=== PATIENT | male | born 1990 | race Caucasian/White ===

== ENCOUNTER 2020-04-14 14:11 | Day surgery (SDC) | payer OTHER ==
[2020-04-13 14:02] VITALS: BMI 27.8
[2020-04-14] MEDS ORDERED: PROPOFOL 20 ML ONE (15:40)
[2020-04-14] MEDS ORDERED: MIDAZOLAM HCL 2 MG/2 ML SINGLE DOSE VIAL ONE (15:40)
[2020-04-14] MEDS ORDERED: BUPIVACAINE HCL/PF 0.25% (2.5MG/ML) 10 ML VIAL ONE (15:54)
[2020-04-14] MEDS ORDERED: BUPIVACAINE HCL/PF 0.25% (2.5MG/ML) 10 ML VIAL IJ ONE (16:39)
[2020-04-14] MEDS ORDERED: PROMETHAZINE HCL 25 MG/1 ML VIAL IVPUSH PRN (17:14)
[2020-04-14] MEDS ORDERED: oxyCODONE HCL 5 MG TABLET PO PRN ×2 (17:14)
[2020-04-14] MEDS ORDERED: ONDANSETRON 4 MG/2 ML VIAL IVPUSH PRN (17:14)
[2020-04-14 18:18] VITALS: TEMP 97.8
--- NOTE | 2020-04-14 18:32 | OP ---
DATE OF OPERATION: 04/14/2020 PREOPERATIVE DIAGNOSIS: Right index finger proximal phalanx intraarticular displaced fracture. POSTOPERATIVE DIAGNOSIS: Right index finger proximal phalanx intraarticular displaced fracture. OPERATIVE PROCEDURE: Operative treatment of right index finger proximal phalanx intraarticular fracture. SURGEON: Maryjane Reece MD OCEAN EXPORT ACCOUNT MANAGER: STEVENSON Machado ANESTHESIA: General. COMPLICATIONS: None. ESTIMATED BLOOD LOSS: Minimal. INDICATION FOR PROCEDURE: A 29-year-old male with the above finding indicated for operative treatment. Risks, benefits, and alternatives were discussed with him at length, and proper informed consent was obtained. DESCRIPTION OF PROCEDURE: After proper identification of the patient and correct operative site, patient was brought to the operating room and placed supine on the operating table. All prominences were well padded. General anesthesia was given. was given. Timeout procedure was performed. Right upper extremity was prepped and draped in the usual sterile fashion with a well-padded tourniquet placed as well as sterile prep. Using live fluoroscopy, the finger was manipulated and not able to be fully reduced. A reduction clamp was then used to manipulate the fragment position intraarticularly which gave us an acceptable alignment. Three separate 0.8-mm K-wires were then placed across the fracture site, transfixing the fracture. Pins were cut short and bent inside the skin. X-rays were taken, confirming proper reduction including intraarticular reduction of the fracture and proper placing and sizing of all hardware. The patient was placed into a splint, and he was reversed from anesthesia and brought to Recovery in stable condition. He tolerated the procedure well. Héctor Rich, the biology research assistant, was integral throughout the procedure. He was necessary to hold proper reduction while K-wires were placed, and this procedure could not have been performed without a skilled operative biology research assistant. MARYJANE REECE M.D. ROBERT/[id number]
[2020-04-14 18:33] VITALS: BP 121/71; PULSE 74
== END 2020-04-14 18:33 | disposition home or self-care (01) ==
LOC: FASU 14:11
PROVIDERS: ATTEND Orthopaedic Surgery Hand Surgery
PROC: 0PST34Z Reposition Right Finger Phalanx with Internal Fixation Device, Percutaneous Approach (ICD-10-PCS; principal; 2020-04-14 16:24)
DX: S62.610A Displaced fracture of proximal phalanx of right index finger, initial encounter for closed fracture (principal); X58.XXXA Exposure to other specified factors, initial encounter; Y93.9 Activity, unspecified; Y92.9 Unspecified place or not applicable
CPT/HCPCS: 73130-TC-RT-FY; 94760